=== PATIENT | male | born 1965 | race Caucasian/White ===

== ENCOUNTER 2020-07-14 08:45 | Inpatient (IN) ==
[2020-07-14] MEDS ORDERED: NITROGLYCERIN 2% OINT 1 INCH/GM PACK TOP STA (09:17)
[2020-07-14] MEDS ORDERED: ASPIRIN 325 MG TABLET PO STA (09:17)
[2020-07-14] MEDS ORDERED: NITROGLYCERIN SL 0.4 MG TABLET SL PRN (09:17)
[2020-07-14 09:27] LABS: Basophils # 0.1 10*3/uL (0.0-0.2); Basophils % 0.7 % (0.0-0.8); Eosinophils % 0.3 % (0.00-10.9); Hematocrit 51.4 VOL% (42.0-52.0); Hemoglobin 17.1 GM/DL (14.0-18.0); Immature Granulocytes % 0.6 %; Immature Granulocytes Absolute 0.04 #; Lymphocytes # 2.5 10*3/uL (1.4-4.0); Lymphocytes % 34.4 % (21.2-54.2); Mean Corpuscular HGB Conc 33.3 GM/DL (32-36); Mean Corpuscular Volume 90.2 FL (87-102); Mean Platelet Volume 11.1 FL (9.6-12.0); Monocytes % 6.6 % (1.7-12.7); Neutrophils % 57.4 % (38.7-73.9); Platelet Count 272 T/CUMM (130-400); Red Cell Distribution Width 12.7 % (9.3-17.3); White Blood Count 7.2 T/CUMM (4-12)
[2020-07-14 09:51] LABS: Calcium 9.1 MG/DL (8.5-10.1); Osmolality,Calculated 274.7 MOS/KG (273-304)
[2020-07-14] MEDS ORDERED: HEPARIN 5,000 UNIT/1 ML VIAL IV STA (11:09)
[2020-07-14] MEDS ORDERED: ONDANSETRON 4 MG/2 ML VIAL IV PRN (11:34)
[2020-07-14] MEDS ORDERED: ACETAMINOPHEN 325 MG TABLET PO PRN (11:34)
[2020-07-14] MEDS ORDERED: MORPHINE 4 MG/1 ML VIAL IV PRN (11:34)
[2020-07-14] MEDS ORDERED: guaiFENesin/DM ER 600-30 MG TABLET PO PRN (11:34)
[2020-07-14] MEDS ORDERED: MAGNESIUM SULF RIDER 2 GM in PREMIX 1 EACH IV PRN (11:34)
[2020-07-14] MEDS ORDERED: BISACODYL 5 MG TABLET PO PRN (11:34)
[2020-07-14] MEDS ORDERED: ZALEPLON 5 MG CAPSULE PO PRN (11:34)
[2020-07-14] MEDS ORDERED: LACTULOSE 20 GM/30 ML UDCUP PO PRN (11:34)
[2020-07-14] MEDS ORDERED: CALCIUM CARBONATE CHEW 500 MG TABLET PO PRN (11:34)
[2020-07-14] MEDS ORDERED: SIMETHICONE CHEW 125 MG TABLET PO PRN (11:34)
[2020-07-14] MEDS ORDERED: diphenhydrAMINE CAP 25 MG CAPSULE PO PRN (11:34)
[2020-07-14] MEDS ORDERED: ALUMINUM/MAGNES/SIMETH MAX STR 30 ML UDCUP PO PRN (11:34)
[2020-07-14] MEDS ORDERED: POTASSIUM CHLORIDE 20 MEQ TABLET PO PRN (11:34)
[2020-07-14] MEDS ORDERED: MAGNESIUM SULF RIDER 4 GM in PREMIX 1 EACH IV PRN (11:34)
[2020-07-14] MEDS ORDERED: HEPARIN/NACL 0.9% 2 UNITS/ML 500 ML IV ONE (11:58)
[2020-07-14] MEDS ORDERED: LIDOCAINE 1% 20 ML VIAL ONE (11:59)
[2020-07-14] MEDS ORDERED: HEPARIN/NACL 0.9% 2 UNITS/ML 1,000 ML IV ONE (11:59)
[2020-07-14] MEDS ORDERED: fentaNYL 100 MCG/2 ML VIAL ONE (12:04)
[2020-07-14] MEDS ORDERED: MIDAZOLAM 2 MG/2 ML VIAL ONE ×2 (12:04→13:48)
[2020-07-14] MEDS ORDERED: HEPARIN 5,000 UNIT/1 ML VIAL ONE (13:04)
[2020-07-14] MEDS ORDERED: TICAGRELOR 90 MG TABLET ONE (13:05)
[2020-07-14] MEDS ORDERED: NITROGLYCERIN DRIP 50 MG/250 ML BOTTLE IV ONE (13:19)
[2020-07-14] MEDS ORDERED: TICAGRELOR 90 MG TABLET PO STA (14:32)
[2020-07-14] MEDS ORDERED: SODIUM CHLORIDE 0.9% 1,000 ML IV SCH (15:00)
[2020-07-14] MEDS ORDERED: ENOXAPARIN 40 MG/0.4 ML SYRINGE SUBCUT SCH (21:00)
[2020-07-14] MEDS: FENOFIBRATE 145 MG TABLET PO SCH (21:15)
[2020-07-14] MEDS: ROSUVASTATIN 20 MG TABLET PO SCH (21:15)
[2020-07-14] MEDS: TICAGRELOR 90 MG TABLET PO SCH (21:16)
[2020-07-14] MEDS: OMEGA 3 ACID ETHYL ESTERS 1 GM CAPSULE PO SCH (21:16)
[2020-07-15 05:39] LABS: Basophils % 0.4 % (0.0-0.8); Eosinophils % 0.4 % (0.00-10.9); Hematocrit 42.3 VOL% (42.0-52.0); Immature Granulocytes % 0.4 %; Immature Granulocytes Absolute 0.04 #; Lymphocytes # 3.2 10*3/uL (1.4-4.0); Lymphocytes % 33.9 % (21.2-54.2); Mean Corpuscular HGB Conc 34.3 GM/DL (32-36); Mean Corpuscular Volume 89.2 FL (87-102); Mean Platelet Volume 11.7 FL (9.6-12.0); Monocytes % 8.1 % (1.7-12.7); Neutrophils % 56.8 % (38.7-73.9); Platelet Count 226 T/CUMM (130-400); Red Blood Count 4.74 MC/CUMM (3.8-5.5); Red Cell Distribution Width 12.7 % (9.3-17.3)
[2020-07-15 05:58] LABS: Hemoglobin 14.5 GM/DL (14.0-18.0); White Blood Count 9.5 T/CUMM (4-12)
[2020-07-15 06:16] LABS: CKMB % 4.5 %; Calcium 8.4 MG/DL (8.5-10.1); Osmolality,Calculated 279.3 MOS/KG (273-304); Risk Ratio 4.77; Thyroid Stimulating Hormone 1.48 uIU/ml (0.358-3.74); VLDL CHOLESTEROL 31.8 MG/DL
[2020-07-15 06:30] LABS: Troponin I 20.9 NG/ML (0.00-0.045)
[2020-07-15] MEDS ORDERED: diphenhydrAMINE CAP 25 MG CAPSULE PO ONE (07:24)
[2020-07-15] MEDS ORDERED: DIAZEPAM 5 MG TABLET PO ONE (07:24)
[2020-07-15] MEDS ORDERED: POTASSIUM CHLORIDE RIDER 10 MEQ in PREMIX 1 EACH IV PRN (07:24)
[2020-07-15] MEDS ORDERED: HEPARIN/NACL 0.9% 2 UNITS/ML 1,000 ML IV ONE (07:27)
[2020-07-15] MEDS ORDERED: HEPARIN/NACL 0.9% 2 UNITS/ML 500 ML IV ONE (07:28)
[2020-07-15] MEDS ORDERED: LIDOCAINE 1% 20 ML VIAL ONE (07:28)
[2020-07-15] MEDS ORDERED: diphenhydrAMINE CAP 50 MG CAPSULE ONE (07:30)
[2020-07-15] MEDS: ASPIRIN EC 81 MG TABLET PO SCH ×2 (07:36→09:44)
[2020-07-15] MEDS: PANTOPRAZOLE 40 MG TABLET PO SCH ×2 (07:36→09:44)
[2020-07-15] MEDS: TICAGRELOR 90 MG TABLET PO SCH ×3 (07:37→20:25)
[2020-07-15] MEDS ORDERED: fentaNYL 100 MCG/2 ML VIAL ONE (08:32)
[2020-07-15] MEDS ORDERED: MIDAZOLAM 2 MG/2 ML VIAL ONE (08:32)
[2020-07-15] MEDS ORDERED: HEPARIN 5,000 UNIT/1 ML VIAL ONE (08:43)
[2020-07-15] MEDS ORDERED: NITROGLYCERIN DRIP 50 MG/250 ML BOTTLE IV ONE (09:20)
[2020-07-15] MEDS ORDERED: SODIUM CHLORIDE 0.9% 1,000 ML IV SCH (10:00)
[2020-07-15] MEDS: ROSUVASTATIN 20 MG TABLET PO SCH (20:25)
[2020-07-15] MEDS: FENOFIBRATE 145 MG TABLET PO SCH (20:25)
[2020-07-15] MEDS: OMEGA 3 ACID ETHYL ESTERS 1 GM CAPSULE PO SCH (20:25)
[2020-07-16 05:18] LABS: Basophils # 0.1 10*3/uL (0.0-0.2); Basophils % 0.5 % (0.0-0.8); Eosinophils # 0.1 10*3/uL (0.0-0.87); Eosinophils % 0.9 % (0.00-10.9); Hematocrit 40.6 VOL% (42.0-52.0); Hemoglobin 13.7 GM/DL (14.0-18.0); Immature Granulocytes % 0.5 %; Immature Granulocytes Absolute 0.05 #; Lymphocytes # 3.1 10*3/uL (1.4-4.0); Mean Corpuscular HGB Conc 33.7 GM/DL (32-36); Mean Corpuscular Volume 90.4 FL (87-102); Mean Platelet Volume 11.3 FL (9.6-12.0); Monocytes % 9.6 % (1.7-12.7); Neutrophils % 54.5 % (38.7-73.9); Platelet Count 197 T/CUMM (130-400); Red Blood Count 4.49 MC/CUMM (3.8-5.5); Red Cell Distribution Width 12.8 % (9.3-17.3); White Blood Count 9.2 T/CUMM (4-12)
[2020-07-16 05:50] LABS: Calcium 8.5 MG/DL (8.5-10.1); Osmolality,Calculated 280.3 MOS/KG (273-304)
[2020-07-16 05:53] LABS: Troponin I 8.32 NG/ML (0.00-0.045)
[2020-07-16 08:39] VITALS: BP 111/71
[2020-07-16] MEDS: TICAGRELOR 90 MG TABLET PO SCH (10:19)
[2020-07-16] MEDS: ASPIRIN EC 81 MG TABLET PO SCH (10:19)
[2020-07-16] MEDS: PANTOPRAZOLE 40 MG TABLET PO SCH (10:20)
== END 2020-07-16 14:51 | disposition home or self-care (01) | DRG 246 ==
LOC: N.TELES 08:45 → N.ED 08:45 → N.TELES 11:50
PROVIDERS: ADMIT Internal Medicine Cardiovascular Disease; ATTEND Internal Medicine Cardiovascular Disease
PROC: CLCCHCL (ICD-10-PCS; 2020-07-14 12:45)